=== PATIENT | female | born 1990 | race Two or more races ===

== ENCOUNTER 2021-08-18 07:14 | Observation (INO) | payer MEDICAID ==
[2021-08-18] MEDS ORDERED: PREN-96 PO (17:00)
== END 2021-08-18 18:03 | disposition home or self-care (01) ==
LOC: LDRP 14:50
PROVIDERS: ADMIT Obstetrics & Gynecology; ATTEND Obstetrics & Gynecology
DX: O40.3XX0 Polyhydramnios, third trimester, not applicable or unspecified (principal); O62.9 Abnormality of forces of labor, unspecified; Z3A.38 38 weeks gestation of pregnancy
CPT/HCPCS: 59025; 76818; 81002; 94760; G0378

== ENCOUNTER 2021-08-20 16:03 | Observation (INO) | payer MEDICAID ==
[~2021-08-20] VITALS: Ht 157.5 cm; Wt 76.7 kg
[~2021-08-20 16:03] MED LIST: PREN-96 PO
[2021-08-20] MEDS ORDERED: TERBUTALINE SULFATE 1 MG/ML 1ML VIAL SC ONE (18:45)
== END 2021-08-20 20:00 | disposition home or self-care (01) ==
LOC: LDRP 16:03
PROVIDERS: ADMIT Obstetrics & Gynecology; ATTEND Obstetrics & Gynecology
DX: O40.3XX0 Polyhydramnios, third trimester, not applicable or unspecified (principal); O41.8X30 Other specified disorders of amniotic fluid and membranes, third trimester, not applicable or unspecified; Z3A.38 38 weeks gestation of pregnancy
CPT/HCPCS: 59025; 76818; 81002; 94760; 96372; G0378; G0379; J3105

== ENCOUNTER 2021-08-23 09:14 | Observation (INO) | payer MEDICAID ==
[2021-08-23 17:08] LABS: Urine Bacteria NONE SEEN /hpf (None Seen); Urine Blood Negative /uL (Negative); Urine Mucus FEW (None Seen); Urine Specific Gravity 1.036 (1.001-1.035); Urine WBC 4 /hpf (0 - 5)
[2021-08-23 17:23] LABS: Alcohol, Urine < 3.0 mg/dL (0-10); Amphetamine Screen, Urine NEGATIVE (NEGATIVE); Barbiturate Scree,Urine NEGATIVE (NEGATIVE); Benzodiazephine Screen, Urine NEGATIVE (NEGATIVE); Cannabinoid Screen, Urine NEGATIVE (NEGATIVE); Cocaine Screen, Urine NEGATIVE (NEGATIVE); Opiate Scree,Urine NEGATIVE (NEGATIVE); Phencyclidine Screen, Urine NEGATIVE (NEGATIVE)
[2021-08-23] MEDS ORDERED: NIF10C PO (17:24)
[2021-08-23 17:30] LABS: Basophils # (auto) 0 10 ^3/uL (0-0.2); Basophils % (auto) 0.6 % (0.0-2.0); Eosinophils # (auto) 0 10 ^3/uL (0-0.8); Eosinophils % (auto) 0.6 % (0.0-7.0); Hematocrit 32.1 % (36.0-46.0); Hemoglobin 10.8 g/dL (12.2-16.2); Lymphocytes # (auto) 1.2 10 ^3/uL (0.4-5.4); Lymphocytes % (auto) 24.6 % (10.0-50.0); Mean Corpuscular Hemoglobin 30.3 pg (28.0-32.0); Mean Corpuscular Hgb Conc. 33.7 g/dL (32.0-36.0); Mean Corpuscular Volume 89.9 fL (80.0-100.0); Monocytes # (auto) 0.5 10 ^3/uL (0-1.3); Monocytes % (auto) 9.6 % (0.0-12.0); Neutrophils # (auto) 3.2 10 ^3/uL (1.6-8.6); Neutrophils % (auto) 64.6 % (37.0-80.0); Nucleated Red Blood Cells % 0.1 %; Red Blood Cells 3.57 10^6/uL (4.0-5.20); Red Cell Distribution Width 14.6 % (11.8-14.3); White Blood Cell 4.9 10^3/uL (4.4-10.8)
[2021-08-23 17:39] LABS: INR 0.92 (0.9-1.15); Partial Thromboplastin Time 26.5 sec (23.6-33.0)
[2021-08-23 17:41] LABS: Albumin 2.5 g/dL (3.4-5.0); BUN/Creatinine Ratio 15.1; Calcium 8.7 mg/dL (8.5-10.1)
[2021-08-23 17:44] LABS: Bilirubin, Total 0.2 mg/dL (0.2-1.0); Total Protein 6.3 g/dL (6.4-8.2)
[2021-08-24 08:06] LABS: RPR Non Reactive (Non Reactive)
== END 2021-08-23 17:30 | disposition home or self-care (01) ==
LOC: LDRP 14:51
PROVIDERS: ADMIT Obstetrics & Gynecology; ATTEND Obstetrics & Gynecology
DX: O40.3XX0 Polyhydramnios, third trimester, not applicable or unspecified (principal); Z20.822 Contact with and (suspected) exposure to COVID-19; O62.9 Abnormality of forces of labor, unspecified; Z3A.38 38 weeks gestation of pregnancy
CPT/HCPCS: 36415; 59025; 76818; 80053; 80307; 81001; 81002; 85025; 85610; 85730; 86592; 86850; 86900; 86901; G0378; U0003

== ENCOUNTER 2021-08-24 16:21 | Inpatient (IN) | payer MEDICAID ==
[~2021-08-24] VITALS: Ht 55.9 cm; Wt 77.6 kg
[~2021-08-24 16:21] MED LIST changes: +NIF10C PO
[2021-08-25] VITALS (20 sets, daily range): BP systolic 100–118; BP diastolic 55–86
[2021-08-25] MEDS ORDERED: LACTATED RINGER'S 1,000 ML IV ONE (04:30)
[2021-08-25] MEDS: LACTATED RINGER'S 1,000 ML IV SCH ×2 (04:45→20:30)
[2021-08-25] MEDS ORDERED: FERR-7 PO (05:01)
[2021-08-25] MEDS ORDERED: ceFAZolin 1GM/50ML 50 ML IV ONE (06:30)
[2021-08-25] MEDS ORDERED: TETRACAINE 1% INJ 2 ML VIAL IJ ONE (07:06)
[2021-08-25] MEDS ORDERED: MIDAZOLAM HCL 2MG/2ML 2ml VIAL (1mg/ml) ONE ×2 (07:07→08:04)
[2021-08-25] MEDS ORDERED: oxyTOCIN 10 UNIT/ML 10ML VIAL ONE (07:07)
[2021-08-25] MEDS ORDERED: SODIUM CHLORIDE LOCK 10 ML ONE (07:07)
[2021-08-25] MEDS ORDERED: ONDANSETRON HCL 4 MG/2 ML VIAL ONE (07:07)
[2021-08-25] MEDS ORDERED: ePHEDrine SULFATE 50 MG/ML AMP ONE (07:07)
[2021-08-25] MEDS ORDERED: fentaNYL CITRATE 100 MCG/2 ML VL ONE (07:07)
[2021-08-25] MEDS ORDERED: MORPHINE SULF PF 2 MG/2 ML SYRG ONE (07:07)
[2021-08-25] MEDS ORDERED: METOCLOPRAMIDE HCL 5MG/ml INJ 2ml VIAL ONE (08:18)
[2021-08-25] MEDS ORDERED: LACT. RINGERS/OXYTOCIN 20UNITS 1,000 ML IV ONE (08:30)
[2021-08-25] MEDS ORDERED: MORPHINE SULFATE 4 MG/ML SYR/VIAL IV PRN ×2 (08:30→08:45)
[2021-08-25] MEDS ORDERED: ONDANSETRON HCL 4 MG/2 ML VIAL IV PRN (08:30)
[2021-08-25] MEDS ORDERED: ceFAZolin 1GM/50ML 50 ML IV SCH (08:30)
[2021-08-25] MEDS ORDERED: diphenhdrAMINE HCL 50 MG/1 ML VL IV PRN (08:45)
[2021-08-25] MEDS ORDERED: NALOXONE HCL 0.4 MG/ML VIAL IV PRN (08:45)
[2021-08-25] MEDS ORDERED: METOCLOPRAMIDE HCL 5MG/ml INJ 2ml VIAL IV PRN (08:45)
[2021-08-25] MEDS ORDERED: HYDROmorphone HCL 2 MG/ML VL IV PRN (08:45)
[2021-08-25] MEDS ORDERED: KETOROLAC TROMETH 30 MG/ML 1ML VIAL IV ONE (08:45)
[2021-08-25] MEDS ORDERED: HYDR-4902 PO (09:25)
[2021-08-25] MEDS ORDERED: DOCU-94 PO (09:25)
[2021-08-25] MEDS ORDERED: IBUP800T27 PO (09:25)
[2021-08-25] MEDS: ACETAMINOPHEN IV 1000 MG/100ML (10MG/ML) IV PRN (11:13)
[2021-08-25] MEDS: ceFAZolin 1GM/50ML 50 ML IV SCH ×2 (14:43→23:07)
[2021-08-25] MEDS: HYDROmorphone HCL 2 MG/ML VL IV PRN (19:59)
[2021-08-25 22:07] LABS: Basophils # (auto) 0 10 ^3/uL (0-0.2); Basophils % (auto) 0.2 % (0.0-2.0); Eosinophils # (auto) 0 10 ^3/uL (0-0.8); Eosinophils % (auto) 0.4 % (0.0-7.0); Hematocrit 32.2 % (36.0-46.0); Hemoglobin 10.9 g/dL (12.2-16.2); Lymphocytes # (auto) 1.3 10 ^3/uL (0.4-5.4); Lymphocytes % (auto) 17.2 % (10.0-50.0); Mean Corpuscular Hgb Conc. 33.8 g/dL (32.0-36.0); Mean Corpuscular Volume 91.8 fL (80.0-100.0); Monocytes # (auto) 0.6 10 ^3/uL (0-1.3); Monocytes % (auto) 8.2 % (0.0-12.0); Neutrophils # (auto) 5.7 10 ^3/uL (1.6-8.6); Nucleated Red Blood Cells % 0.1 %; Red Blood Cells 3.51 10^6/uL (4.0-5.20); Red Cell Distribution Width 14.6 % (11.8-14.3); White Blood Cell 7.7 10^3/uL (4.4-10.8)
[2021-08-26] VITALS (12 sets, daily range): BP systolic 100–130; BP diastolic 63–79
[2021-08-26] MEDS: ACETAMINOPHEN IV 1000 MG/100ML (10MG/ML) IV PRN (00:11)
[2021-08-26] MEDS: HYDROmorphone HCL 2 MG/ML VL IV PRN (05:06)
[2021-08-26 05:58] LABS: Basophils # (auto) 0 10 ^3/uL (0-0.2); Basophils % (auto) 0.5 % (0.0-2.0); Eosinophils # (auto) 0.1 10 ^3/uL (0-0.8); Eosinophils % (auto) 1.2 % (0.0-7.0); Hematocrit 27.7 % (36.0-46.0); Hemoglobin 9.5 g/dL (12.2-16.2); Lymphocytes % (auto) 16.4 % (10.0-50.0); Mean Corpuscular Hemoglobin 30.8 pg (28.0-32.0); Mean Corpuscular Hgb Conc. 34.2 g/dL (32.0-36.0); Monocytes # (auto) 0.6 10 ^3/uL (0-1.3); Monocytes % (auto) 9.3 % (0.0-12.0); Neutrophils # (auto) 4.6 10 ^3/uL (1.6-8.6); Neutrophils % (auto) 72.6 % (37.0-80.0); Red Blood Cells 3.07 10^6/uL (4.0-5.20); Red Cell Distribution Width 14.5 % (11.8-14.3); White Blood Cell 6.3 10^3/uL (4.4-10.8)
[2021-08-26] MEDS: LACTATED RINGER'S 1,000 ML IV SCH ×2 (06:39→06:44)
[2021-08-26] MEDS: ceFAZolin 1GM/50ML 50 ML IV SCH (06:45)
[2021-08-26] MEDS ORDERED: HYDROcodone-ACET 5/325MG TAB PO PRN (07:30)
[2021-08-26] MEDS ORDERED: BISACODYL 10 MG RECT SUPP PR PRN (07:30)
[2021-08-26] MEDS: HYDROcodone-ACET 5/325MG TAB PO PRN ×2 (07:45→14:42)
[2021-08-26] MEDS: DOCUSATE SOD 100 MG CAP PO SCH ×2 (10:10→22:10)
[2021-08-26] MEDS: DOCUSATE CALCIUM 240 MG CAP PO SCH (10:10)
[2021-08-26] MEDS: IBUPROFEN 800 MG TAB PO PRN ×2 (10:50→20:38)
[2021-08-26] MEDS: SIMETHICONE 80 MG CHEWABLE TABLET PO SCH ×3 (12:14→22:10)
[2021-08-27] MEDS: HYDROcodone-ACET 5/325MG TAB PO PRN ×4 (03:11→23:04)
[2021-08-27 03:30] VITALS: BP 103/76
[2021-08-27] MEDS: SIMETHICONE 80 MG CHEWABLE TABLET PO SCH ×4 (05:30→22:33)
[2021-08-27 07:00] VITALS: BP 117/71
[2021-08-27] MEDS: IBUPROFEN 800 MG TAB PO PRN ×2 (07:13→19:32)
[2021-08-27] MEDS ORDERED: DOCU-94 PO (08:17)
[2021-08-27] MEDS ORDERED: HYDR-4902 PO (08:17)
[2021-08-27] MEDS ORDERED: IBUP800T27 PO (08:17)
[2021-08-27 11:00] VITALS: BP 110/73
[2021-08-27 15:00] VITALS: BP 117/67
[2021-08-27] MEDS: DOCUSATE CALCIUM 240 MG CAP PO SCH (16:29)
[2021-08-27] MEDS: DOCUSATE SOD 100 MG CAP PO SCH ×2 (16:29→22:33)
[2021-08-27 19:30] VITALS: BP 135/89
[2021-08-27 23:00] VITALS: BP 132/81
[2021-08-28 03:00] VITALS: BP 105/65
[2021-08-28] MEDS: SIMETHICONE 80 MG CHEWABLE TABLET PO SCH (05:32)
[2021-08-28] MEDS: IBUPROFEN 800 MG TAB PO PRN (05:41)
[2021-08-28 07:20] VITALS: BP 126/79
== END 2021-08-28 08:48 | disposition home or self-care (01) | DRG 540 ==
LOC: LDRP 08-25 04:04
PROVIDERS: ADMIT Obstetrics & Gynecology; ATTEND Obstetrics & Gynecology
PROC: 10D00Z1 Extraction of Products of Conception, Low, Open Approach (ICD-10-PCS; principal; 2021-08-25 07:21)
DX: O34.211 Maternal care for low transverse scar from previous cesarean delivery (principal); Z20.822 Contact with and (suspected) exposure to COVID-19; Z37.0 Single live birth; Z3A.39 39 weeks gestation of pregnancy
CPT/HCPCS: 36415; 59025; 81002; 85025; 86850; 86900; 86901; 87426; 94760; 94762; 96360; 96361; 96374; G0378; J0131; J0690; J2250; J2405; J2590